=== PATIENT | female | born 1930 | race Hispanic/Latino ===

== ENCOUNTER 2016-10-22 09:02 | Observation (INO) | payer MEDICARE, BC ==
[2016-10-22 09:03] VITALS: BMI 22.6
--- NOTE | 2016-10-22 09:40 | ED PDOC ---
Arrival/HPI - General Chief Complaint: Shortness Of Breath Time Seen by Provider: 10/22/16 09:19 Historian: Patient - History of Present Illness Narrative History of Present Illness (Text): 10/22/16 12:00 An 86 year old female, whose past medical history includes ESRD (due for dialysis today), presents to the emergency department complaining of shortness of breath. Patient was laying on CAT scan table when she had shortness of breath , outpatient of right lower extremity. Patient reports her last dialysis was on Saturday. Patient denies chest pain, fevers, cough, abdominal pain, headaches, dizziness or any other complaints at this time. Time/Duration: Prior to Arrival Symptom Onset: Sudden Symptom Course: Unchanged Activities at Onset: Rest Context: Other (on CAT scan bed) Associated Symptoms (Text): none Past Medical History - Provider Review Nursing Documentation Reviewed: Yes - Infectious Disease Hx of Infectious Diseases: None - Tetanus Immunization Tetanus Immunization: Unknown - Reproductive Menopause: Yes - Cardiac Hx Cardiac Disorders: Yes Hx Angina: Yes Hx Atrial Fibrillation: Yes Hx Cardiac Arrhythmia: Yes (AFIB) Hx Circulatory Problems: Yes (angio 1 month ago) Hx Congestive Heart Failure: Yes Hx UT: Yes Hx Hypertension: Yes Hx Pacemaker: No Hx Peripheral Vascular Disease: Yes Other/Comment: cad, cardiac stent x 7 - Pulmonary Hx Respiratory Disorders: Yes Hx Asthma: Yes Hx Chronic Obstructive Pulmonary Disease (COPD): Yes Hx Pneumonia: Yes - Neurological Hx Neurological Disorder: Yes Hx Dizziness: Yes Hx Paralysis: No - HEENT Hx HEENT Disorder: No - Renal Hx Renal Disorder: Yes Hx Dialysis: Yes Date of Last Dialysis Treatment: 10/19/16 Hx Kidney Stones: Yes (1975) Hx Renal Failure: Yes (m-w-f) Other/Comment: PT HAS A LEFT UPPER ARM FISTULA. - Endocrine/Metabolic Hx Endocrine Disorders: Yes Hx Diabetes Mellitus Type 2: Yes - Hematological/Oncological Hx Blood Disorders: Yes Hx Blood Transfusions: Yes Hx Blood Transfusion Reaction: No - Integumentary Hx Dermatological Disorder: No - Musculoskeletal/Rheumatological Hx Musculoskeletal Disorders: Yes Hx Arthritis: Yes Hx Falls: Yes Hx Fractures: Yes (BRIDGE OF NOSE) Hx Unsteady Gait: Yes (uses cane) - Gastrointestinal Hx Gastrointestinal Disorders: Yes Hx Constipation: Yes Hx Hemorrhoids: Yes Other/Comment: constipation, needs to take laxatives and has bm's once a week - Genitourinary/Gynecological Hx Genitourinary Disorders: Yes Other/Comment: pt voids every day x3 dialysis m/w/f here - Psychiatric Hx Psychophysiologic Disorder: Yes (SMOKED PPD QUIT 1989) Hx Anxiety: Yes Hx Depression: No Hx Emotional Abuse: No Hx Physical Abuse: No Hx Substance Use: No - Surgical History Hx Coronary Stent: Yes (x7) Hx Open Heart Surgery: Yes Hx Vascular Access Device: Yes Other/Comment: cardiac stent x7. - Anesthesia Hx Anesthesia Reactions: No Hx Malignant Hyperthermia: No - Suicidal Assessment Feels Threatened In Home Enviroment: No Family/Social History - Physician Review Nursing Documentation Reviewed: Yes Family/Social History: No Known Family HX Smoking Status: Never Smoked Hx Alcohol Use: No Hx Substance Use: No Hx Substance Use Treatment: No Allergies/Home Meds Allergies/Adverse Reactions: Allergies ciprofloxacin Allergy (Severe, Verified 10/22/16 09:16) hives pt. states she has severe reaction to cipro with hives codeine Allergy (Severe, Verified 10/22/16 09:16) hives pt states she has allergic reaction to codeine that causes severe hives Sulfa (Sulfonamide Antibiotics) Allergy (Severe, Verified 10/22/16 09:16) HIVES pt. states she has a severe reaction of hives to sulfa. iodine Allergy (Verified 10/22/16 09:16) ANAPHYLAXIS Home Medications: Home Meds Medication Instructions Recorded Confirmed Calcium Acetate 667 mg PO .BEFOREMEALS 01/05/12 10/22/16 Lisinopril [Zestril] 20 mg PO BID 08/16/15 10/22/16 Metoprolol Succinate [Toprol XL] 25 mg PO BID 08/16/15 10/22/16 Repaglinide [Prandin] 2 mg PO BID 08/16/15 10/22/16 ALPRAZolam [Xanax] 0.25 mg PO . DIRECTED PRN 08/17/16 10/22/16 Aspirin [Ecotrin] 81 mg PO DAILY 08/17/16 10/22/16 Ergocalciferol (Vitamin D2) 50,000 units PO .EVERY Saturday08/17/16 10/22/16 [Vitamin D] cloNIDine [Catapres] 0.1 mg PO BID PRN 03/03/17 05/08/17 B Complex W-C No.20/Folic Acid 1 mg PO DAILY 10/22/16 10/22/16 [Triphrocaps Softgel] Review of Systems - Physician Review All systems were reviewed & negative as marked: Yes - Review of Systems Respiratory: SOB. absent: Cough Cardiovascular: absent: Chest Pain Gastrointestinal: absent: Abdominal Pain Neurological: absent: Headache, Dizziness Physical Exam Vital Signs Reviewed: Yes Vital Signs Temp Pulse Resp BP Pulse Ox 10/22/16 15:17 76 18 165/61 H 96 10/22/16 14:35 83 18 181/79 H 99 10/22/16 10:05 92 H 179/98 H 99 10/22/16 09:52 20 99 10/22/16 09:11 97.7 F 100 H 221/101 H 97 - Systems Exam Head: Present: Atraumatic, Normocephalic Pupils: Present: PERRL Extroacular Muscles: Present: EOMI Conjunctiva: Present: Normal Mouth: Present: Moist Mucous Membranes Neck: Present: Normal Range of Motion Respiratory/Chest: Present: Wheezes (mild expiratory bilaterally), Rales (scant at bases bilaterally). No: Accessory Muscle Use Cardiovascular: Present: Regular Rate and Rhythm, Normal S1, S2. No: Murmurs Abdomen: Present: Normal Bowel Sounds. No: Tenderness, Distention, Peritoneal Signs Upper Extremity: Present: Normal Inspection. No: Cyanosis, Edema Lower Extremity: Present: Normal Inspection. No: Edema Neurological: Present: GCS=15, CN II-XII Intact, Speech Normal Skin: Present: Warm, Dry, Normal Color. No: Rashes Psychiatric: Present: Alert, Oriented x 3, Normal Insight, Normal Concentration Medical Decision Making ED Course and Treatment: 10/22/16 09:40 Impression: An 86 year old female with ESRD complaining of shortness of breath. Differential Diagnosis include but are not limited to: end stage renal disease vs. pneumonia Plan: -- EKG -- chest xray -- labs -- Nasal Cannula -- Reassess and disposition Prior Visits: Notes and results from previous visits were reviewed. Patient was last reported to emergency department on 08/17/16 for evaluation of upper and lower back pain after a mechanical fall. Patient was advised to follow up with PMD and discharged. Progress Notes: EKG: Ordered, reviewed, and independently interpreted the EKG. Rate : 99 BPM Rhythm : NSR Interpretation : First degree AV block, normal axis Comparison : No previous EKG for comparison. chest xray: Creator : Eriberto Bradshaw MD IMPRESSION: There is vascular congestion and patchy bilateral infiltrates most consistent with CHF. - Lab Interpretations Lab Results: 10/22/16 10:00 10/22/16 10:10 Lab Results 10/22/16 10:10: Sodium 134, Potassium 4.7, Chloride 93 L, Carbon Dioxide 24, Anion Gap 22 H, BUN 54 H, Creatinine 6.3 H, Est GFR ( Amer) 8, Est GFR ( Non-Af Amer) 6, Random Glucose 154 H, Calcium 9.2, Magnesium 2.5 H, Total Bilirubin 0.8, AST 17, ALT 26, Alkaline Phosphatase 93, Lactate Dehydrogenase 370, Total Creatine Kinase 29 L, Troponin I < 0.01, Total Protein 7.9, Albumin 4.0, Globulin 3.9, Albumin/Globulin Ratio 1.0 L 10/22/16 10:00: WBC 15.9 H D, RBC 4.08, Hgb 11.9 L, Hct 36.9, MCV 90.4, MCH 29.2 , MCHC 32.2, RDW 15.2 H, Plt Count 338, MPV 11.9 H, Gran % 58.0, Lymph % (Auto) 21.7 L, [place] % (Auto) 10.4 H, Eos % (Auto) 9.4 H, Baso % (Auto) 0.5, Gran # 9.21 H, Lymph # 3.5 H, [place] # 1.7 H, Eos # 1.5 H, Baso # 0.08 I have reviewed the lab results: Yes - RAD Interpretation Radiology Orders: 10/22/16 09:20 CHEST PORTABLE [RAD] Stat - EKG Interpretation Type: 12 lead EKG ED OBSERVATION Discharge: Yes Date of observation admission: 10/22/16 Time of observation admission: 10:00 - Observation admission statement Patient is being placed in observation because:: shortness of breath - Goals of Observation Goals of observation are:: monitor patient symptoms - Scribe Statement The provider has reviewed the documentation as recorded by the Scribe Wil Chappell All medical record entries made by the Scribe were at my direction and personally dictated by me. I have reviewed the chart and agree that the record accurately reflects my personal performance of the history, physical exam, medical decision making, and the department course for this patient. I have also personally directed, reviewed, and agree with the discharge instructions and disposition. Disposition/Present on Arrival - Present on Arrival Any Indicators Present on Arrival: No History of DVT/PE: No History of Uncontrolled Diabetes: No Urinary Catheter: No History of Decub. Ulcer: No History Surgical Site Infection Following: None - Disposition Have Diagnosis and Disposition been Completed?: Yes Diagnosis: ESRD (end stage renal disease) Disposition: HOME/ ROUTINE Disposition Time: 14:00 Condition: IMPROVED
--- NOTE | 2016-10-22 09:41 | RAD ---
HISTORY: SOB COMPARISON: 08/16/2015 FINDINGS: LUNGS: There is vascular congestion and patchy bilateral infiltrates most consistent with CHF PLEURA: No significant pleural effusion identified, no pneumothorax apparent. CARDIOVASCULAR: Normal. OSSEOUS STRUCTURES: No significant abnormalities. VISUALIZED UPPER ABDOMEN: Normal. OTHER FINDINGS: None. IMPRESSION: There is vascular congestion and patchy bilateral infiltrates most consistent with CHF
[2016-10-22 10:06] LABS: ADD MANUAL DIFF? NO; BASO # 0.08 [, K/mm3] (0.0-2.0); BASO % 0.5 % (0.0-3.0); EOS # 1.5 (0.0-0.7); EOS % 9.4 % (1.5-5.0); GRAN # 9.21 (1.4-6.5); HEMATOCRIT 36.9 % (36.0-48.0); LYMPH # 3.5 (1.2-3.4); LYMPH % 21.7 % (22.0-35.0); MEAN CELL VOLUME 90.4 fL (80.0-105.0); MEAN CORPUSCULAR HEMOGLOBIN 29.2 pg (25.0-35.0); MEAN CORPUSCULAR HGB CONC 32.2 g/dl (31.0-37.0); MEAN PLATELET VOLUME 11.9 fl (7.0-11.0); MONO # 1.7 (0.1-0.6); MONO % 10.4 % (1.0-6.0); PLATELET COUNT 338 [, 10^3/uL] (120.0-450.0); RED CELL DISTRIBUTION WIDTH 15.2 % (11.5-14.5); WHITE BLOOD COUNT 15.9 [, 10^3/ul] (4.5-11.0)
[2016-10-22 10:27] LABS: ALKALINE PHOSPHATASE 93 U/L (38-133); ALT/SGPT 26 U/L (7-56); AST/SGOT 17 U/L (15-39); BILIRUBIN,TOTAL 0.8 mg/dL (0.2-1.3); BLOOD UREA NITROGEN 54 mg/dL (7-21); CALCIUM 9.2 mg/dL (8.4-10.5); CARBON DIOXIDE 24 mmol/L (21-33); CHLORIDE 93 mmol/L (98-107); GFR AFRICAN-AMERICAN 8; GLUCOSE,RANDOM 154 mg/dL (70-110); MAGNESIUM 2.5 mg/dL (1.7-2.2); POTASSIUM 4.7 mmol/L (3.6-5.0); SODIUM 134 mmol/L (132-148); TOTAL PROTEIN 7.9 g/dL (5.8-8.3)
[2016-10-22 10:41] LABS: TROPONIN I < 0.01 ng/mL
[2016-10-22 11:34] VITALS: TEMP 97.7
--- NOTE | 2016-10-22 13:37 | CARD ---
APPROVED REPORT EKG Measurement Heart [id number] <Conclusion> Sinus rhythm with 1st degree AV block STTW changes c/w ischemia Small q waves 2,3,F
[2016-10-22 14:35] VITALS: RESP 18
[2016-10-22 15:18] VITALS: BP 165/61; PULSE 76; O2SAT 96
== END 2016-10-22 14:41 | disposition home or self-care (01) ==
LOC: ED 09:02 → EROBSV 11:46
PROVIDERS: ADMIT Emergency Medicine; ATTEND Emergency Medicine
DX: I12.0 Hypertensive chronic kidney disease with stage 5 chronic kidney disease or end stage renal disease (principal); N18.6 End stage renal disease; Z99.2 Dependence on renal dialysis
CPT/HCPCS: 71010; 80053; 82550; 83615; 83735; 84484; 85025; 93005; 99284; G0378

== ENCOUNTER 2016-11-19 10:03 | Observation (INO) | payer MEDICARE, BC ==
[2016-11-19 10:04] VITALS: BMI 22.6
--- NOTE | 2016-11-19 10:18 | ED PDOC ---
Arrival/HPI - General Chief Complaint: Shortness Of Breath Time Seen by Provider: 11/19/16 10:16 Historian: Patient - History of Present Illness Narrative History of Present Illness (Text): 11/19/16 10:16 A 86 year old female, whose past medical history includes hemodialysis, presents to the emergency department for evaluation of worsening dyspnea on exertion and shortness breath for the past two days. Patient denies any chest pain. Patient states she had a extra 30 minutes of hemodialysis today, after which, she had symptomatic relief. Patient says she currently feels well. Patient said initially she had some nausea and a lower extremity cramping but that has also spontaneously resolved. Patient has no complaints at this time. Time/Duration: Other (2 days) Symptom Course: Resolved Quality: Other Activities at Onset: Rest Context: Home Past Medical History - Provider Review Nursing Documentation Reviewed: Yes - Infectious Disease Hx of Infectious Diseases: None - Tetanus Immunization Tetanus Immunization: Unknown - Cardiac Hx Cardiac Disorders: Yes Hx Angina: Yes Hx Atrial Fibrillation: Yes Hx Cardiac Arrhythmia: Yes (AFIB) Hx Circulatory Problems: Yes (angio 1 month ago) Hx Congestive Heart Failure: Yes Hx MA: Yes Hx Hypertension: Yes Hx Pacemaker: No Hx Peripheral Vascular Disease: Yes Other/Comment: cad, cardiac stent x 7 - Pulmonary Hx Respiratory Disorders: Yes Hx Asthma: Yes Hx Chronic Obstructive Pulmonary Disease (COPD): Yes Hx Pneumonia: Yes - Neurological Hx Neurological Disorder: Yes Hx Dizziness: Yes Hx Paralysis: No - HEENT Hx HEENT Disorder: No - Renal Hx Renal Disorder: Yes Hx Dialysis: Yes Date of Last Dialysis Treatment: 10/19/16 Hx Kidney Stones: Yes (1975) Hx Renal Failure: Yes (m-w-f) Other/Comment: PT HAS A LEFT UPPER ARM FISTULA. - Endocrine/Metabolic Hx Endocrine Disorders: Yes Hx Diabetes Mellitus Type 2: Yes - Hematological/Oncological Hx Blood Disorders: Yes Hx Blood Transfusions: Yes Hx Blood Transfusion Reaction: No - Integumentary Hx Dermatological Disorder: No - Musculoskeletal/Rheumatological Hx Musculoskeletal Disorders: Yes Hx Arthritis: Yes Hx Falls: Yes Hx Fractures: Yes (BRIDGE OF NOSE) Hx Unsteady Gait: Yes (uses cane) - Gastrointestinal Hx Gastrointestinal Disorders: Yes Hx Constipation: Yes Hx Hemorrhoids: Yes Other/Comment: constipation, needs to take laxatives and has bm's once a week - Genitourinary/Gynecological Hx Genitourinary Disorders: Yes Other/Comment: pt voids every day x3 dialysis m/w/f here - Psychiatric Hx Psychophysiologic Disorder: Yes (SMOKED PPD QUIT 1989) Hx Anxiety: Yes Hx Depression: No Hx Emotional Abuse: No Hx Physical Abuse: No Hx Substance Use: No - Surgical History Hx Coronary Stent: Yes (x7) Hx Open Heart Surgery: Yes Hx Vascular Access Device: Yes Other/Comment: cardiac stent x7. - Anesthesia Hx Anesthesia Reactions: No Hx Malignant Hyperthermia: No - Suicidal Assessment Feels Threatened In Home Enviroment: No Family/Social History - Physician Review Nursing Documentation Reviewed: Yes Family/Social History: Unknown Family HX Smoking Status: Never Smoked Hx Alcohol Use: No Hx Substance Use: No Hx Substance Use Treatment: No Allergies/Home Meds Allergies/Adverse Reactions: Allergies ciprofloxacin Allergy (Severe, Verified 10/22/16 09:16) hives pt. states she has severe reaction to cipro with hives codeine Allergy (Severe, Verified 10/22/16 09:16) hives pt states she has allergic reaction to codeine that causes severe hives Sulfa (Sulfonamide Antibiotics) Allergy (Severe, Verified 10/22/16 09:16) HIVES pt. states she has a severe reaction of hives to sulfa. iodine Allergy (Verified 10/22/16 09:16) ANAPHYLAXIS Home Medications: Home Meds Medication Instructions Recorded Confirmed Calcium Acetate 667 mg PO .BEFOREMEALS 01/05/12 11/19/16 Lisinopril [Zestril] 20 mg PO BID 08/16/15 11/19/16 Metoprolol Succinate [Toprol XL] 25 mg PO BID 08/16/15 11/19/16 Repaglinide [Prandin] 2 mg PO BID 08/16/15 11/19/16 ALPRAZolam [Xanax] 0.25 mg PO . DIRECTED PRN 08/17/16 11/19/16 Aspirin [Ecotrin] 81 mg PO DAILY 08/17/16 11/19/16 Ergocalciferol (Vitamin D2) 50,000 units PO .EVERY Saturday08/17/16 11/19/16 [Vitamin D] cloNIDine [Catapres] 0.1 mg PO BID PRN 08/17/16 11/19/16 B Complex W-C No.20/Folic Acid 1 mg PO DAILY 10/22/16 11/19/16 [Triphrocaps Softgel] Physical Exam - Physical Exam Narrative Physical Exam (Text): - Review of Systems Constitutional: Normal. absent: Fatigue, Weight Change, Fevers Eyes: Normal ENT: Normal Respiratory: Normal absent: SOB, Cough, Sputum Cardiovascular: Normal absent: Chest pain, Palpitations, Syncope Gastrointestinal: Normal absent: Abdominal pain, Diarrhea, Nausea, Vomiting Genitourinary: Normal. absent: Dysuria, Frequency, Hematuria Musculoskeletal: Normal. absent: Arthralgias, Back Pain, Neck Pain Skin: Normal Neurological: Normal absent: Focal Weakness Endocrine: Normal Hemo/Lymphatic: Normal Psychiatric: Normal - Physical exam Patient appears age appropriate, speaking full sentences without difficulty - Systems Exam Head: Present: Atraumatic, Normocephalic Pupils: Present: PERRL Extraocular Muscles: Present: EOMI Conjunctiva: Present: Normal Mouth: Present: Moist Mucous Membranes Neck: Present: Normal Range of Motion. No: MIDLINE TENDERNESS, Paraspinal Tenderness Respiratory/Chest: Present: Clear to Auscultation, Good Air Exchange. No: Respiratory Distress, Accessory Muscle Use, Tachypneic Cardiovascular: Present: Regular Rate and Rhythm, Normal S1, S2, Peripheral Pulses Present. No: Murmurs Abdomen: Present: Normal Bowel Sounds, No: Tenderness, Peritoneal Signs, Rebound, Guarding, Distention Back: Present: Normal Inspection. No: Midline Tenderness, Paraspinal Tenderness Upper Extremity: Present: Normal Inspection. Hemodialysis access, left upper extremity, positive thrill/bruit/pulse. No: Cyanosis, Edema Lower Extremity: Present: Normal Inspection. No: Edema Neurological: Present: GCS=15, Speech Normal, cranial nerves II through XII fully intact with no cerebellar abnormality, neuro-sensory fully intact. No focal neurological deficits. Skin: Present: Warm, Dry, Normal Color. No: Rashes Lymphatic: Present: OX3, NI, NC Psychiatric: Present: Alert, Oriented x 3, Normal Insight, Normal Concentration Vital Signs Reviewed: Yes Vital Signs Temp Pulse Resp BP Pulse Ox 11/19/16 10:18 97.4 F L 72 20 162/72 H 94 L Temperature: Afebrile Blood Pressure: Hypertensive Pulse: Regular Respiratory Rate: Normal Appearance: Positive for: Well-Appearing, Non-Toxic, Comfortable Pain Distress: None Mental Status: Positive for: Alert and Oriented X 3 Medical Decision Making ED Course and Treatment: 11/19/16 10:17 Impression: A 86 year old female with dyspnea on exertion and shortness of breath, which has resolved after hemodialysis. No acute findings on physical examination. Plan: -- EKG -- Chest X-ray -- Labs -- Reassess and disposition Progress Notes: EKG: Ordered, reviewed, and independently interpreted the EKG. Rate : 70 BPM Rhythm : Sinus Rhythm with a 1st degree AV block. Interpretation : No ST-segment elevations, ST-segment depression in the lateral leads. Interpreted by me. Comparison : No change from previous EKG on 10/22/16 for comparison. 11/19/16 11:49 11/19/16 12:[address] Solomon in the ER, states to tele obs to r/o ACS pt in no distress, aware of and agrees with plan Dr. Palacio paged, awaiting callback Chest xray interpreted by ED physician shows no pneumothorax, no cardiomegaly, no infiltrates 13:[address] Matthew Palacio, accepted pt to his service pt in no distress, denies complaints, aware of and agrees with plan - Lab Interpretations Lab Results: 11/19/16 09:30 11/19/16 09:30 Lab Results 11/19/16 09:30: PT 10.5, INR 0.97, APTT 31.5 H 11/19/16 09:30: Sodium 137, Potassium 3.8, Chloride 94 L, Carbon Dioxide 27, Anion Gap 20, BUN 16, Creatinine 2.2 H, Est GFR ( Amer) 26, Est GFR (Non- Af Amer) 21, Random Glucose 143 H, Calcium 9.9, Total Bilirubin 0.9, AST 33, ALT 25, Alkaline Phosphatase 118, Lactate Dehydrogenase 532, Total Creatine Kinase 45, Troponin I 0.02 D, NT-Pro-B Natriuret Pep 81964 H, Total Protein 9.5 H, Albumin 5.0 H, Globulin 4.5, Albumin/Globulin Ratio 1.1 11/19/16 09:30: WBC 18.1 H, RBC 4.54, Hgb 13.2, Hct 40.1, MCV 88.3, MCH 29.1, MCHC 32.9, RDW 14.3, Plt Count 305, MPV 11.9 H, Gran % 82.6 H, Lymph % (Auto) 8.7 L, [place] % (Auto) 7.7 H, Eos % (Auto) 0.7 L, Baso % (Auto) 0.3, Gran # 14.98 H, Lymph # 1.6, [place] # 1.4 H, Eos # 0.1, Baso # 0.05 I have reviewed the lab results: Yes - RAD Interpretation Radiology Orders: 11/19/16 10:40 CHEST TWO VIEWS (PA/LAT) [RAD] Stat - Medication Orders Current Medication Orders: Discontinued Medications Aspirin (Aspirin Chewable) 324 mg PO STAT STA Stop: 11/19/16 12:30 Last Admin: 11/19/16 12:33 Dose: 81 mg Nitroglycerin (Nitrostat Sl Tab) 0.3 mg SL STAT STA Stop: 11/19/16 12:30 Last Admin: 11/19/16 12:32 Dose: 0.3 mg - Scribe Statement The provider has reviewed the documentation as recorded by the Gricelda Oshea Provider Scribe Attestation: All medical record entries made by the Gricelda were at my direction and personally dictated by me. I have reviewed the chart and agree that the record accurately reflects my personal performance of the history, physical exam, medical decision making, and the department course for this patient. I have also personally directed, reviewed, and agree with the discharge instructions and disposition. Disposition/Present on Arrival - Present on Arrival Any Indicators Present on Arrival: No History of DVT/PE: No History of Uncontrolled Diabetes: No Urinary Catheter: No History of Decub. Ulcer: No History Surgical Site Infection Following: None - Disposition Have Diagnosis and Disposition been Completed?: Yes Diagnosis: Dyspnea on exertion Disposition: HOSPITALIZED Disposition Time: 13:00 Patient Plan: Observation Patient Problems: Current Active Problems Problem Status Onset Dyspnea on exertion Acute Condition: FAIR Referrals: Ramsey Palacio MD [Primary Care Provider] - Follow up with primary
[2016-11-19 11:04] LABS: ADD MANUAL DIFF? NO
[2016-11-19 11:12] LABS: BASO # 0.05 K/mm3 (0.0-2.0); BASO % 0.3 % (0.0-3.0); EOS # 0.1 (0.0-0.7); EOS % 0.7 % (1.5-5.0); GRAN # 14.98 (1.4-6.5); GRAN % 82.6 % (50.0-68.0); HEMATOCRIT 40.1 % (36.0-48.0); LYMPH # 1.6 (1.2-3.4); LYMPH % 8.7 % (22.0-35.0); MEAN CELL VOLUME 88.3 fL (80.0-105.0); MEAN CORPUSCULAR HEMOGLOBIN 29.1 pg (25.0-35.0); MEAN CORPUSCULAR HGB CONC 32.9 g/dl (31.0-37.0); MEAN PLATELET VOLUME 11.9 fl (7.0-11.0); MONO # 1.4 (0.1-0.6); MONO % 7.7 % (1.0-6.0); PLATELET COUNT 305 10^3/uL (120.0-450.0); RED CELL DISTRIBUTION WIDTH 14.3 % (11.5-14.5); WHITE BLOOD COUNT 18.1 10^3/ul (4.5-11.0)
[2016-11-19 11:18] LABS: INR 0.97 (0.93-1.08); PARTIAL THROMBOPLASTIN TIME 31.5 Seconds (23.7-30.8)
[2016-11-19 11:29] LABS: ALB/GLOB RATIO 1.1 (1.1-1.8); BILIRUBIN,TOTAL 0.9 mg/dL (0.2-1.3); CALCIUM 9.9 mg/dL (8.4-10.5); POTASSIUM 3.8 mmol/L (3.6-5.0); TOTAL PROTEIN 9.5 g/dL (5.8-8.3)
[2016-11-19 11:41] LABS: TROPONIN I 0.02 ng/mL
--- NOTE | 2016-11-19 13:20 | RAD ---
HISTORY: SOB COMPARISON: 10/22/2016 TECHNIQUE: Chest PA and lateral FINDINGS: LUNGS: No active pulmonary disease. The pulmonary edema seen on the previous study has resolved PLEURA: No significant pleural effusion identified. No pneumothorax apparent. CARDIOVASCULAR: Normal. OSSEOUS STRUCTURES: No significant abnormalities. VISUALIZED UPPER ABDOMEN: Normal. OTHER FINDINGS: None. IMPRESSION: No active disease.
--- NOTE | 2016-11-19 15:15 | CARD ---
APPROVED REPORT EKG Measurement Heart [id number] <Conclusion> Sinus rhythm with 1st degree AV block IVCD STTW changes c/w ischemia
--- NOTE | 2016-11-19 16:09 | CON ---
DATE: 11/19/2016 NEPHROLOGY CONSULTATION HISTORY OF PRESENT ILLNESS: An 86-year-old female with past medical history of hypertension, diabetes, peripheral vascular disease, status post left lower extremity bypass, CAD, status post stent (last in 2013), and ESRD on hemodialysis, presented this morning for routine hemodialysis session and was found to be markedly dyspneic. The patient reports feeling well this weekend, but had sudden onset of shortness of breath this morning. Denies any significant cough. Does report increased leg swelling of late, particularly in the ankles bilaterally. Denies any chest pain or palpitations, but did report having abdominal pain associated with her shortness of breath this morning. The patient reports being compliant to salt and fluid restriction and denies any dietary indiscretion over this weekend. PAST MEDICAL HISTORY: As above. FAMILY HISTORY: ____. SOCIAL HISTORY: ____. REVIEW OF SYSTEMS: CONSTITUTIONAL: Eating well. No weight loss. Good appetite. HEENT: No sore throat, runny nose, sinus problems. RESPIRATORY: As mentioned in HPI. CARDIOVASCULAR: As mentioned in HPI. GASTROINTESTINAL: Normal bowel movements. Had some dry heaves this morning. GENITOURINARY: Makes scant amount of urine. NEUROLOGIC: Occasional dizziness and headaches. MUSCULOSKELETAL: ____. PSYCHIATRIC: ____. PHYSICAL EXAMINATION: VITAL SIGNS: This morning, blood pressure 162/72, heart rate 72, respirations 20, temperature 97.4, O2 sat 94% on room air. GENERAL: No distress, conversing coherently in full sentences. HEENT: Moist mucous membranes. Nonicteric. NECK: No cervical lymphadenopathy. RESPIRATORY: Lungs clear to auscultation bilaterally. No rales, no rhonchi, no wheezes. HEART: S1, S2 normal. No murmurs, no gallops, no rubs. ABDOMEN: Soft, nontender, nondistended. GENITOURINARY: No bladder distention. NEUROLOGIC: Cranial nerves II-XII grossly intact, 5/5 motor strength in bilateral upper and lower extremities. EXTREMITIES: 1+ bilateral lower leg edema. SKIN: Warm. No cyanosis. Good capillary refill. PSYCHIATRIC: Normal mood, normal affect. PULSES: Peripheral pulses faint bilateral with palpable dorsalis pedis pulses. Left carotid bruit present. LABORATORIES: This morning, WBC 18.1, hemoglobin 13.2, hematocrit 40.1, platelets 305. Chemistry panel: Sodium 137, potassium 3.8, chloride 94, bicarb 27, BUN 16, creatinine 2.2, glucose 143, calcium 9.9. BNP 15,500. Albumin 5.0. Troponin 0.02. RADIOLOGIC DATA: Chest x-ray directly reviewed. No pulmonary vascular congestion, no pulmonary edema. ASSESSMENT AND PLAN: 1. Dyspnea: Relatively sudden onset, although patient is likely total body fluid overloaded prior to receiving dialysis this morning with symptoms improving upon dialysis and ultrafiltration. The patient has been edematous of late, even last week, despite stable post-dialysis, pre-dialysis weight. The patient is likely losing muscle mass and therefore needs to have her estimated dry weight lowered and more fluid taken off. Nevertheless, with patient's cardiac history, is prudent to observe and rule out acute coronary syndrome. 2. End-stage renal disease on hemodialysis: The patient compliant with dialysis prescription. Does not have excessive weight gains, as mentioned above , but likely is total body salt and water overloaded. Otherwise, dialysis adequacy has been above target. Will continue with Saturday, Saturday, Saturday dialysis per routine. 3. Hypertension: Blood pressure relatively well controlled. Currently on clonidine 0.1 mg b.i.d. prn, diltiazem CD 120 mg daily, lisinopril 20 mg b.i.d. , and metoprolol 25 mg b.i.d, continue same; give clonidine for SBP > 160; 4. Leukocytosis: Etiology is unclear. No left shift present. Getting blood cultures, 2 sets, and will observe. 5. Anemia: Hemoglobin above target for end-stage renal disease (10-11 g). Holding Aranesp. 6. Chronic kidney disease, mineral bone disease: The patient has had relatively low phosphate levels for a dialysis patient. Currently is on PhosLo 1 tab t.i.d. with meals. PhosLo continued as patient reports itching when phosphorus levels are elevated; however, low phosphatase may be indicative that patient does not have adequate nutritional intake. The patient has been advised to be more liberal with dietary phosphorus intake. Will continue PhosLo 1 tab t.i.d. with meals. Fredis Mao MD cc: [id number] TT: 11/19/2016 16:08:10 Confirmation # [id number] Dictation # [id number] shellie GEE
[2016-11-19] MEDS ORDERED: Pneumococcal 23-Valent Vaccine IM ONE (16:57)
[2016-11-19] MEDS: Metoprolol Succinate 25 mg XL Tab PO SCH (17:46)
[2016-11-19 17:58] VITALS: RESP 18; TEMP 97.7; O2SAT 95
--- NOTE | 2016-11-19 18:25 | CON ---
DATE: 11/19/2016 REASON FOR CONSULTATION: Shortness of breath predialysis. BRIEF CLINICAL HISTORY: This is an 86-year-old female with past medical history significant for end- stage renal disease, on dialysis; hypertension, type 2 diabetes; status post a stent in 10/2013 and 0 01/2014 at [facility], total, according to the patient and daughter, 7 stents were joanna brittany; who was in usual state of health and has dialysis scheduled today at 5:00. The patient is very short of breath at 5:00, so came to the Emergency Room. Had dialysis and then patient feels a lot be tter. Denies any episode of chest pain, but the daughter says that 3-4 days ago patient's speech was a little slurred but no complaint of chest pain. PAST MEDICAL HISTORY: Significant for end-stage renal disease, on dialysis; hypertension, type 2 ariadne betes; coronary artery disease, status post a stent, total 7 stents according to the daughter, on 2013 and 01/2014 at [facility]; status post both left and right fem-pop bypass. PAST SURGICAL HISTORY: Significant for bilateral fem-pop bypass and left arm AV fistula. SOCIAL HISTORY: Denies smoking. Denies any history of alcohol abuse. Quit smoking 20 years ago. ALLERGIES: TO PLAVIX, CIPRO, CODEINE AND SULFA, IODINE. ON LAST CONSULT ALSO IN MY CONSULT I DIC TATED, ALLERGY TO PLAVIX WELL. CURRENT MEDICATIONS: The patient is taking at home clonidine, Prandin, metoprolol, lisinopril, calci um, B complex, aspirin, acetaminophen, Xanax. PREVIOUS CARDIAC WORKUP: As follows: The patient had echocardiography 12/23/2014 that showed ejecti on fraction 55-60%, normal segmental wall motion, mild to moderate mitral regurgitation, mild tricusp id regurgitation, RV systolic pressure of 45. The patient has a stress thallium 12/28/2014 that shows normal myocardial perfusion study with normal wall motion, ejection fraction 75%. EKG showed normal sinus, first degree AV block, intraventricular conduction defect, ST-T changes cons istent with ischemia. Chest x-ray: No active disease. REVIEW OF SYSTEMS: As per HPI. PHYSICAL EXAMINATION: VITAL SIGNS: Temperature afebrile, heart rate 60, blood pressure 180/80. HEENT: PERRLA. Extraocular muscles intact. NECK: Supple. No carotid bruits. No thyromegaly. CHEST: Clear to auscultation. HEART: S1, S2 regular. ABDOMEN: Soft. EXTREMITIES: Clubbing and cyanosis negative. BLOOD WORKUP: As follows: WBC 18.1, hemoglobin 13.2, hematocrit 40.1, platelet count is 305. Chemi stry showed sodium ____, potassium 3.8, chloride 94, carbon dioxide 27, anion gap of 20, BUN 16, crea tinine 2.2. Troponin 0.01 and 0.2. IMPRESSION: Shortness of breath, cannot rule out ischemia; history of multiple stents, diabetes, hyp ertension, hyperlipidemia, ex-smoker; end-stage renal disease, on dialysis. Previous stress test was negative. RECOMMENDATIONS: Will get echo, a stress test, lipid profile, TSH, hemoglobin A1c. Follow up serial CPK, troponin. If CPK, troponin remains flat, will consider stress test tomorrow. Discussed with t he patient, discussed with the daughter. We will follow with you. Thank you, Dr. Palacio, for providing us the opportunity in taking care of the patient. Jass Rich MD cc: [id number] TT: 11/19/2016 18:24:46 Confirmation # [id number] Dictation # [id number] mn
[2016-11-19 18:55] LABS: TROPONIN I 0.02 ng/mL
[2016-11-19] MEDS: Insulin Reg-MEDIUM-Coverage SC SCH (21:17)
[2016-11-20 07:44] LABS: TROPONIN I 0.03 ng/mL
[2016-11-20] MEDS: Insulin Reg-MEDIUM-Coverage SC SCH ×3 (08:27→12:39)
[2016-11-20] MEDS: Metoprolol Succinate 25 mg XL Tab PO SCH (10:12)
[2016-11-20] MEDS ORDERED: Aminophylline 25 mg/ml Inj ONE (10:31)
--- NOTE | 2016-11-20 11:13 | PN ---
DATE: 11/20/2016 REASON FOR CONSULTATION AND FOLLOWUP: Shortness of breath predialysis. BRIEF CLINICAL HISTORY: This is an 86-year-old female with a past medical history significant for en d-stage renal disease, on dialysis; hypertension, type 2 diabetes, history of [address] [facility] on 10/16/2013 and ____ at [facility]. Came in with complaint of short ness of breath. The patient is supposed to have dialysis at 5:00, but patient became short of breath . After dialysis, the patient feels stable. Denies any chest pain. Because of underlying so much r isk factors and multiple stents, need to rule out ischemia so patient is scheduled for a stress test today. PHYSICAL EXAMINATION: VITAL SIGNS: Temperature afebrile, heart rate 61, blood pressure 178/76 yesterday. HEENT: PERRLA. Extraocular muscles intact. NECK: Supple. No carotid bruits. No thyromegaly. CHEST: Clear to auscultation. HEART: S1, S2 regular. ABDOMEN: Soft. EXTREMITIES: Clubbing and cyanosis negative. BLOOD WORKUP: As follows: WBC 18.____, hemoglobin 13.____, hematocrit 40.1, platelet count 305. Ch emistry shows sodium 137, potassium 3.8, chloride 94, carbon dioxide 27, gap of 20, BUN 16, creatinin e 2.2. Troponin 0.2, 0.____, 0.3. IMPRESSION: Acute shortness of breath predialysis, possible fluid overload. No evidence of myocardi al infarction. No evidence of acute coronary syndrome. Diabetes, hypertension, hyperlipidemia, hist ory of multiple stents/7 stents in 10/2013 and ____ at [facility]. RECOMMENDATION: Continue dialysis. Will get a stress test and echo. Further recommendation after t he stress test. Will follow with you. Thank you, Dr. Palacio, for providing the opportunity in taking care of this patient. Will follow with you. Jass Rich MD cc: [id number] TT: 11/20/2016 10:47:07 Confirmation # [id number] Dictation # [id number] mn
[2016-11-20 11:33] VITALS: PULSE 69
[2016-11-20 13:41] VITALS: BP 160/70
--- NOTE | 2016-11-20 20:26 | CARD ---
APPROVED REPORT Protocol: LEXISCAN Test Type: Lexiscan Sestamibi Stress Test Attending Physician: Dr. Jass Rich Referring Physician: Dr. Ramsey Palacio Test Indications: Chest Pain Height:5 ft 2 in Weight:140lbs Medications: Aspirin,Phoslo, Catapres, Insulin, Zestril, Toprol, Prandin Medical History: 86 y/o female with a history of diabetes, htn, PVD, CRF on HD, s/p multiple PTCA with 7 stent inserted Target HR: 134 bpm Resting ECG: NSR with St t changes Resting Heart Rate: 70 bpm Resting Blood Pressure: 160/70mmHg Submaximum (85%): 114 bpm PROCEDURE Pharmacologic stress testing was performed using 0.4mg per 5ml of regadenoson given intravenously over 7-10 seconds. Reversal agent aminophyline 100 mg, given intravenously for Dyspnea. POST EXERCISE Reason for Termination: Protocol completed Target HR: No Max HR: 74 bpm 65% of Maximum Predicted HR: 134 bpm Exercise duration: 00:24 min:sec, 0 Stage Exercise capacity: 1.0METs Max Blood Pressure: 160/70mmHg Blood Pressure response to exercise: normal resting BP - appropriate response Heart Rate response to exercise: appropriate Chest Pain: No, none Angina index: 0 Arrhythmia: No, none ST Change: No, none from base line Deviation: 0 mm INTERPRETATION Stress EKG Conclusion: Negative IVD for ischemia and for chest pain, Nuclear scan to follow. Signed by Jass Rich Electronically Approved: 11/20/2016 12:16:01 EXAM: Myocardial Perfusion REST/STRESS Stress Test Type: Pharmacologic Imaging Protocol Rest Spect myocardial perfusion imaging was performed in supine position 45 minutes following the injection of 10.3 mCi of Tc-99 Myoview. At peak stress, the patient was injected intravenously with 30.1mCi of Tc-99 tetrofosmin after an infusion time of 0 minutes and 10 seconds. Gated Stress Spect was performed 65 minutes after intravenous Tc-99 Myoview injection. The images were gated to evaluate regional wall motion and calculate ventricular ejection fraction.Images were reconstructed using backfilter projection method in short horizontal and verticle long axis. Spect slices were generated. LV Perfusion The quality of the study is good. The left ventricle is normal in size. The right ventricle is unremarkable. The lung uptake is within normal limits. The distribution of tracer reveals normal uptake pattern throughout the LV myocardium on the stress study. The rest myocardial perfusion study shows no significant change. Wall Motion Wall motion study shows good contractility of the left ventricle. LVEF = 65%. Conclusion 1. Normal SPECT myocardial perfusion study. 2. Normal gated wall motion of the left ventricle. 3. In comparison with the last study of 12/28/2014, there is no significant change
--- NOTE | 2016-11-27 12:14 | CARD ---
APPROVED REPORT EXAM: Two-dimensional and M-mode echocardiogram with Doppler and color Doppler. 2D DIMENSIONS IVSd1.7 (0.7-1.1cm)LVDd2.8 (3.9-5.9cm) PWd1.7 (0.7-1.1cm)LVDs2.0 (2.5-4.0cm) FS (%) 28.7 %LVEF (%)57.2 (>50%) M-Mode DIMENSIONS Left Atrium (MM)3.40 (2.5-4.0cm)Aortic Root2.90 (2.2-3.7cm) Aortic Cusp Exc.1.50 (1.5-2.0cm) Aortic Valve AoV Peak Kukvbpue628.0cm/sAoV VTI34.8cmAO Peak GR.7mmHg LVOT Peak Cnbkozml90.5cm/sLVOT VTI20.90cmAO Mean GR.4mmHg Mitral Valve MV E Peak Gr.151mmHgMV E Mean Gr.14mmHg Tricuspid Valve TR Peak [id number] [id number] Peak Gr.24mmHg [id number] LEFT VENTRICLE The left ventricle is normal size. There is moderate concentric left ventricular hypertrophy. The left ventricular function is normal.EF-55% There is mild hypokinesis in the mid-inferolateral wall. Transmitral Doppler flow pattern is Grade III-reversible restrictive diastolic dysfunction. No left ventricle thrombus noted on this study. There is no ventricular septal defect visualized. There is no left ventricular aneurysm. There is no mass noted in the left ventricle. RIGHT VENTRICLE The right ventricle is normal size. There is normal right ventricular wall thickness. The right ventricular systolic function is normal. ATRIA The left atrium size is normal. The right atrium size is normal. The interatrial septum is intact with no evidence for an atrial septal defect. AORTIC VALVE The aortic valve is moderately thickened but opens well. There is trace aortic regurgitation. Aortic Sclerosis Vs Mild There is no aortic valvular vegetation. MITRAL VALVE The mitral valve is calcified and displays decreased opening. Mitral annular calcification is severe. Mitral regurgitation is mild. There is mild mitral valve stenosis. There is no evidence of mitral valve prolapse. TRICUSPID VALVE The tricuspid valve leaflets are thickened , but open well. There is mild tricuspid regurgitation.RVSP-34 mmof hg. There is no tricuspid valve stenosis. There is no tricuspid valve prolapse or vegetation. PULMONIC VALVE The pulmonic valve is borderline thickened. There is trace pulmonic valvular regurgitation. There is no pulmonic valvular stenosis. GREAT VESSELS The aortic root is normal in size. The ascending aorta is normal in size. The pulmonary artery is normal. The IVC is normal in size and collapses >50% with inspiration. PERICARDIAL EFFUSION There is no pleural effusion. There is no pericardial effusion. <Conclusion> The left ventricle is normal size. There is moderate concentric left ventricular hypertrophy. The left ventricular function is normal.EF-55% There is trace aortic regurgitation. Aortic Sclerosis Vs Mild Mitral regurgitation is mild. There is mild mitral valve stenosis. There is mild tricuspid regurgitation.RVSP-34 mmof hg. The IVC is normal in size and collapses >50% with inspiration. There is no pericardial effusion.
== END 2016-11-20 14:47 | disposition home or self-care (01) ==
LOC: ED 10:03 → ERH 13:00 → 2RSO 16:05
PROVIDERS: ADMIT Internal Medicine; ATTEND Internal Medicine
DX: R06.09 Other forms of dyspnea (principal); I12.0 Hypertensive chronic kidney disease with stage 5 chronic kidney disease or end stage renal disease; N18.6 End stage renal disease; E11.22 Type 2 diabetes mellitus with diabetic chronic kidney disease; Z99.2 Dependence on renal dialysis; I25.10 Atherosclerotic heart disease of native coronary artery without angina pectoris; E78.5 Hyperlipidemia, unspecified; D64.9 Anemia, unspecified; E11.51 Type 2 diabetes mellitus with diabetic peripheral angiopathy without gangrene; Z95.5 Presence of coronary angioplasty implant and graft; Z87.891 Personal history of nicotine dependence
CPT/HCPCS: 36415; 71020; 78452; 80053; 80061; 82550; 82948; 83036; 83615; 83880; 84443; 84484; 85025; 85610; 85730; 93005; 93017; 93306; 99285; A9502; G0378